=== PATIENT | female | born 1965 | race Caucasian/White ===

== ENCOUNTER 2018-05-31 06:27 | Observation (INO) ==
--- NOTE | 2018-05-31 07:28 | ED ---
HPI General Chief Complaint: Seizure Stated Complaint: medical Time Seen by Provider: 05/31/18 07:20 Source: patient Mode of arrival: EMS Limitations: no limitations History of Present Illness HPI Narrative: 52 y/o female resents by ambulance after having a witnessed tonic -clonic seizure. She was postictal with EMS. She is back to baseline now. She states in [place] she had a recent workup for atrial fibrillation and had an ablation to help control her heart rate. She states she moved down here and does not have a local doctor now. She states she has been having passout episodes but is never been diagnosed with a true seizure and takes no seizure medications. She states she is also been having intermittent chest pain over the past couple weeks. She states her heart doctor up in [place] was wanting to do a pacemaker next to help control her heart rate but she has not had a chance to follow-up given she is down here now. She denies any other concurrent complaints and does not recall episode. Related Data Allergies Allergy/AdvReac Type Severity Reaction Status Date / Time meperidine Allergy Mild Hives Verified 05/31/18 06:39 hydromorphone Allergy Unknown Anaphylaxis Verified 05/31/18 06:39 NOVCAINE Allergy Mild Burning Uncoded 05/31/18 06:39 Review of Systems ROS: all other systems reviewed are negative ON LICENSE OF [facility] Medical History Medical History A-fib (Acute) Hx of hysterectomy (Acute) Surgical History Surgical History Hx of section (Acute) Hx of prior ablation treatment (Acute) Social History Social History Substance History: No History of Abuse Second Hand Smoke Exposure: No Smoking Status: Former smoker How Often Do You Have a Drink Containing Alcohol: Monthly or less Recent Travel in [facility] within the Last 8 Weeks: No Recent Out of Country Travel within the Last 8 Weeks: No Immunization History Tetanus Immunization: >5 Years Exam Narrative Exam Narrative: GENERAL: 52 y/o female in no apparent distress SKIN: Focused skin assessment warm/dry. HEAD: Atraumatic. Normocephalic. EYES: Pupils equal and round. No scleral icterus. No injection or drainage. ENT: No nasal bleeding or discharge. Mucous membranes pink and moist. NECK: Trachea midline. No JVD. CARDIOVASCULAR: Regular rate and rhythm. RESPIRATORY: No accessory muscle use. no increased effort GASTROINTESTINAL: Abdomen soft, non-tender, nondistended. MUSCULOSKELETAL: No obvious deformities. No clubbing. No cyanosis. No edema. NEUROLOGICAL: Awake and alert. Motor grossly within normal limits. Normal speech. PSYCHIATRIC: Appropriate mood and affect; insight and judgment normal. Course Reevaluation(s) Reevaluation #1: Patient updated and agrees to plan Consultations Consultation #1: resident team agrees to admit Initial Documented Vital Signs Temperature 98.2 F 05/31/18 06:33 Pulse Rate 84 05/31/18 06:33 Respiratory Rate 18 05/31/18 06:33 Blood Pressure 126/60 05/31/18 06:33 Pulse Oximetry 99 05/31/18 06:33 Last Documented Vital Signs Temperature 98.2 F 05/31/18 06:33 Pulse Rate 87 05/31/18 08:23 Respiratory Rate 17 05/31/18 08:23 Blood Pressure 169/71 H 05/31/18 08:23 Pulse Oximetry 96 05/31/18 08:23 Medical Decision Making MDM Narrative Medical decision making narrative: Will check blood work, chest x-ray, CT brain and patient will need to be admitted to the hospital for further care Medical Screen Exam Complete: Yes Emergency Medical Condition: Yes Differential Diagnosis Differential Diagnosis: Seizure disorder, electrolyte abnormality, intracranial , cardiac Lab Data Lab results reviewed: Yes I reviewed the patient's lab results. Result diagrams: 05/31/18 07:00 05/31/18 07:00 Lab Results 05/31/18 05/31/18 05/31/18 Range/Units 07:00 07:00 07:00 WBC 6.7 (4.0-11.0) th/mm3 RBC 4.23 (4.00-5.30) mil/mm3 Hgb 13.9 (11.6-15.3) gm/dL Hct 39.8 (35.0-46.0) % MCV 94.0 (80.0-100.0) fL MCH 32.8 (27.0-34.0) pg MCHC 34.9 (32.0-36.0) % RDW 13.3 (11.6-17.2) % Plt Count 270 (150-450) th/mm3 MPV 9.1 (7.0-11.0) fL Neut % (Auto) 52.6 (16.0-70.0) % Lymph % (Auto) 27.7 (9.0-44.0) % [place] % (Auto) 16.8 H (0.0-8.0) % Eos % (Auto) 2.2 (0.0-4.0) % Baso % (Auto) 0.7 (0.0-2.0) % Neut # (Auto) 3.5 (1.8-7.7) th/mm3 Lymph # (Auto) 1.8 (1.0-4.8) th/mm3 [place] # (Auto) 1.1 H (0.0-0.9) th/mm3 Eos # (Auto) 0.1 (0.0-0.4) th/mm3 Baso # (Auto) 0.0 (0.0-0.2) th/mm3 WBC Differential . Differential Comment Auto diff final Sodium 142 (136-145) meq/L Potassium 3.6 (3.5-5.1) meq/L Chloride 106 (98-107) meq/L Carbon Dioxide 26.8 (21.0-32.0) meq/L Anion Gap 9 (5-15) meq/L BUN 13 (7-18) mg/dL Creatinine 0.76 (0.50-1.00) mg/dL Estimated GFR 81 L (>89) mL/min Random Glucose 115 H (74-106) mg/dL Calcium 8.5 (8.5-10.1) mg/dL Magnesium 1.9 (1.5-2.5) mg/dL Total Bilirubin 0.8 (0.2-1.0) mg/dL AST 28 (15-37) U/L ALT 45 (10-53) U/L Alkaline Phosphatase 86 (45-117) U/L Total Creatine Kinase 123 Cancelled (26-192) U/L CK-MB (CK-2) Less than 1.0 (0.5-3.6) ng/mL Troponin I Less than 0.02 L Cancelled (0.02-0.05) ng/mL Total Protein 7.4 (6.4-8.2) g/dL Albumin 3.2 L (3.4-5.0) g/dL Imaging Data Attestation: I personally reviewed and interpreted this imaging study as follows : Radiologist's impression: Head CT 05/31/18 07:20 CONCLUSION: 1. No acute intracranial abnormality. . Chest X-Ray 05/31/18 08:36 CONCLUSION: No acute intrathoracic disease. Stable examination. Discharge Plan Discharge Disposition Patient Disposition: 30 Still Patient Discharge Details Diagnosis: Seizure Physicians Team ED Provider: Carolyn Bishop Primary Care Provider: Primary Care Mary Couch Attending Provider: Luis Lambert Discharge Interventions Interventions: Vital Signs Last Done: 05/31/18 08:23 Status ED Status: Admitted Observation Patient
--- NOTE | 2018-05-31 07:59 | CT ---
EXAM DATE: 05/31/2018 7:37 AM EDT AGE/SEX: 52 years / Female INDICATIONS: Cephalgia, Altered mental status. CLINICAL DATA: This is the patient's initial encounter. Patient reports that signs and symptoms have been present for 1 day and indicates a pain score of 6/10. MEDICAL/SURGICAL HISTORY: . Afib. Hysterectomy. section. RADIATION DOSE: 40.76 CTDI (mGy) COMPARISON: . TECHNIQUE: CT of the head without contrast. Using automated exposure control and adjustment of the mA and/or kV according to patient size, radiation dose was kept as low as reasonably achievable to ob tain optimal diagnostic quality images. DICOM format image data is available electronically for revi ew and comparison. FINDINGS: Cerebrum: The ventricles are normal for age. No evidence of midline shift, mass lesion, hemorrhage o r acute infarction. No extraaxial fluid collections are seen. Posterior Fossa: The cerebellum and brainstem are intact. The 4th ventricle is midline. The cerebe llopontine angle is unremarkable. Extracranial: The visualized portion of the orbits is intact. Skull: The calvaria is intact. No evidence of skull fracture. CONCLUSION: 1. No acute intracranial abnormality. . Electronically signed by: Reza Waller MD 05/31/2018 7:58 AM EDT
[2018-05-31 08:12] LABS: Baso % (Auto) 0.7 % (0.0-2.0); Eos # (Auto) 0.1 th/mm3 (0.0-0.4); Eos % (Auto) 2.2 % (0.0-4.0); Hematocrit 39.8 % (35.0-46.0); Hemoglobin 13.9 gm/dL (11.6-15.3); Lymph # (Auto) 1.8 th/mm3 (1.0-4.8); Lymph % (Auto) 27.7 % (9.0-44.0); Mean Corpuscular HGB Conc 34.9 % (32.0-36.0); Mean Corpuscular Hemoglobin 32.8 pg (27.0-34.0); Mean Platelet Volume 9.1 fL (7.0-11.0); Mono # (Auto) 1.1 th/mm3 (0.0-0.9); Mono % (Auto) 16.8 % (0.0-8.0); Neut # (Auto) 3.5 th/mm3 (1.8-7.7); Neut % (Auto) 52.6 % (16.0-70.0); Platelet Count 270 th/mm3 (150-450); Red Blood Count 4.23 mil/mm3 (4.00-5.30); Red Cell Distribution Width 13.3 % (11.6-17.2); White Blood Count 6.7 th/mm3 (4.0-11.0)
[2018-05-31] MEDS: Sod Chloride 0.9% Inj 1,000 ML IV.CONT SCH ×2 (08:22→18:11)
[2018-05-31 08:34] LABS: Albumin 3.2 g/dL (3.4-5.0); Anion Gap 9 meq/L (5-15); Aspartate Aminotransferase 28 U/L (15-37); Blood Urea Nitrogen 13 mg/dL (7-18); Calcium 8.5 mg/dL (8.5-10.1); Carbon Dioxide 26.8 meq/L (21.0-32.0); Chloride 106 meq/L (98-107); Glomerular Filtration Rate 81 mL/min (>89); Glucose,Random 115 mg/dL (74-106); Magnesium 1.9 mg/dL (1.5-2.5); Potassium 3.6 meq/L (3.5-5.1); Sodium 142 meq/L (136-145)
[2018-05-31 08:35] LABS: Alanine Aminotransferase 45 U/L (10-53)
[2018-05-31 08:39] LABS: Alkaline Phosphatase 86 U/L (45-117); Creatine Kinase 123 U/L (26-192); Total Protein 7.4 g/dL (6.4-8.2)
--- NOTE | 2018-05-31 09:28 | XR ---
EXAM DATE: 05/31/2018 8:36 AM EDT AGE/SEX: 52 years / Female INDICATIONS: Chest pain. CLINICAL DATA: This is the patient's initial encounter. Patient reports that signs and symptoms have been present for 1 day and indicates a pain score of 5/10. MEDICAL/SURGICAL HISTORY: Carcinoma, ovarian. A-fib Hysterectomy. section. COMPARISON: [facility] [place], CHEST SINGLE AP, 03/01/2011. . FINDINGS: A single AP view of the chest demonstrates the lungs to be symmetrically aerated without evidence of mass, infiltrate or effusion. The cardiomediastinal contours are unremarkable. Osseous structures a re intact. CONCLUSION: No acute intrathoracic disease. Stable examination. Electronically signed by: Thiago Olivares MD 05/31/2018 9:26 AM EDT
--- NOTE | 2018-05-31 09:51 | P.HPFP ---
History of Present Illness Primary Care Physician: No Primary Care Physician History of Present Illness: This is a 52-year-old female with a history of "blackouts" and atrial fibrillation status post cardiac ablation admitted to observation after experiencing chest pain and a tonic-clonic seizure. Patient reports that this morning was atypical and regular morning and while making lunch the patient's partner described the patient grabbed her chest granted and her eyes rolled back to begin to shake. Her partner then eased her down to the ground avoiding injury. According to the partner the patient continued to shake and rapidly open and close her eyes for approximately 3 minutes. After 3 minutes of convulsions the partner reports that the patient had approximately 1 minute a little to no breathing with a large gasp before regaining consciousness. During this time the patient reports having no memory of the events immediately before or after reports that she was confused and disoriented until she arrived at the hospital. Partner also reports that the patient urinated on herself during this event. During this time the partner also reports that the patient appeared to be dry heaving but did not vomit. Patient also describes a 4-day history of chest pain. She describes the chest pain as constant at a baseline /10 with exacerbations increasing her pain. She characterizes her chest pain as squeezing that begins in the left side of her chest just underneath the left breast and radiates to the right shoulder, then around her back to her left shoulder that leaves her shoulders feeling like "restless leg". Patient reports it is unrelated to position activity or food but is worsened by deep breathing. Pain self recedes after an inconsistent amount of time. Patient also reports experiencing shortness of breath over the last 2 days. There are no other alleviating or exacerbating factors. There are no other associated symptoms. OBHx: , patient had one gestation with twins 1 of which was diagnosed as a ectopic and removed via laparoscopy. PMHx: - "Blackouts": Patient reports a long history of "black out" spells getting since the 3rd grade. She reports that during these blackout spells she would experience a loss of consciousness and originally could not feel these abrupt loss of tone and consciousness in advance. As an adult she said that they were associated with white spots and feeling woozy as if though she were on a boat. Patient was originally worked up as a child but did not receive workup as an adult. Patient reports that until 5 years ago she was experiencing these blackout events 1 to every 2 months. Since 5 years ago she is experiencing about once a year with the last episode being once a year. She also reported these blackout episodes were accompanied by shaking and in the past have caused trauma and lacerations while falling. As an adult she reports that before she has an event she begins to experience visual changes in her vision becomes blurry. Patient also reports that they are at times when experiences urinary incontinence during these episodes as well as there are time when she experiences shaking during these episodes. These blackout sessions are unrelated to activity, time of day, or position. Due to lack of insurance patient has not received consistent medical care since her daughter's 30 years ago until being diagnosed with atrial fibrillation in 2012 where she was lost [place] followup until 2017. - Ovarian cancer of unknown etiology diagnosed in 2001, status post total hysterectomy with bilateral salpingo-oophorectomy. Patient denies any treatment with chemotherapy or radiation and was lost to follow-up. - Atrial fibrillation with RVR diagnosed in 2012, status post cardiac ablation. Lost to follow up after ablation due to mother's and lack of insurance. Meds: None Surgical Hx: Total hysterectomy with bilateral salpingooopherectomy, laparoscopy for ectopic, , cardiac ablation in 2012 FHx: Father at age 23 from leukemia, brother at age 28 from the same leukemia in his father, mother at the age of 67 due to interstitial lung disease, both mother and maternal grandmother suffered from heart disease as well as TIAs. Paternal grandmother from breast cancer. Social: Patient currently in a homosexual relationship for "many years", she has 5 children and has been previously . 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 She drinks socially/2 drinks per week. Patient is a prior smoker and smoked 1 pack a week for 37 years and quit over one year ago. Patient reports smoking marijuana since she was 13 years old and does not use any other illicit or recreational drugs. Allergies: Dilaudid causes anaphylaxis Code: DNR DNI - Diagnosis (1) Seizure (2) Chest pain (3) Shoulder pain, right (4) Nutrition, metabolism, and development symptoms Review of Systems Constitutional: Denies chills, Denies fever(s), Denies headache(s), Denies dizziness, Eyes: Endorses foggy and blurry vision before "blackout" spells but has had no acute changes in vision outside of her events Cardiovascular: Chest pain as per HPI Respiratory: Endorses a 2-day history of shortness of breath without wheezing Gastrointestinal: Denies abdominal pain, Denies constipation, Denies loose stools, Denies nausea, Denies vomiting Genitourinary: Denies difficulty urinating, Denies painful urination, Denies urinary frequency, Denies blood in urine MSK: Patient endorses right shoulder pain as well as bilateral calf pain PMFSH - History History Provided By: [employer] / EMT - Medical History Medical History: Medical History (Last Reviewed 05/31/18 @ 07:27 by Carolyn Bishop MD) A-fib Hx of hysterectomy - Surgical History Surgical History: Surgical History (Last Reviewed 05/31/18 @ 07:27 by Carolyn Bishop MD) Hx of section Hx of prior ablation treatment - Tobacco History Second Hand Smoke Exposure: No Smoking Status: Former smoker - Alcohol History How Often Do You Have a Drink Containing Alcohol: Monthly or less - Substance Use History Substance History: No History of Abuse - Travel History Recent Travel in the [place] Within the Last 8 Weeks: No Recent Travel Out of the Country Within the Last 8 Weeks: No - Immunization History Tetanus Immunization: >5 Years Medications and Allergies Active Medications: Active Medications Sodium Chloride (Ns Inj) 1,000 mls @ 125 mls/hr IV.CONT .Q8H YESSICA Last Admin: 05/31/18 08:22 Dose: 125 mls/hr Lorazepam (Ativan Inj) 1 mg IV.PUSH Q15M PRN PRN Reason: SEIZURES Sodium Chloride (Ns Flush) 2 ml IV.FLUSH PRN PRN PRN Reason: FLUSH AFTER USING IV ACCESS Allergies Allergy/AdvReac Type Severity Reaction Status Date / Time meperidine Allergy Mild Hives Verified 05/31/18 06:39 hydromorphone Allergy Unknown Anaphylaxis Verified 05/31/18 06:39 NOVCAINE Allergy Mild Burning Uncoded 05/31/18 06:39 Home Medications Medication Instructions Recorded Confirmed Type No Known Home Medications 05/31/18 05/31/18 History Exam Vital signs: Vital Signs 05/31/18 06:33 10/22/18 08:23 Temperature 98.2 F Pulse Rate 84 87 Respiratory Rate 18 17 Blood Pressure 126/60 169/71 H Pulse Oximetry 99 96 Intake & Output 05/30/18 05/31/18 05/31/18 18:59 06:59 18:59 Weight 117.934 kg Narrative: GENERAL: Well-nourished, Obese, well-developed patient. No acute distress. SKIN: Warm and dry. No rash. EYES: No scleral icterus. No injection or drainage. PERRLA. EOMI. HENT: Normocephalic. Atraumatic. MMM. OP Benign. NECK: No JVD CARDIOVASCULAR: Regular rate and rhythm without obvious murmurs, a mild gallops , but no rubs. Mild diffuse tenderness to palpation of the chest wall. RESPIRATORY: Breath sounds equal bilaterally. No accessory muscle use. CTAB. GASTROINTESTINAL: Abdomen soft, obese, non-tender, nondistended. BS WNL. MUSCULOSKELETAL: No cyanosis or edema. Patient had significant bilateral calf pain with dorsiflexion of both calves bilaterally. Tenderness to palpation upon squeezing the calf bilaterally. Patient had tenderness on posterior shoulder as well as anterior shoulder. Patient had a symmetric strength with 5 out of 5 on the left and 4 out of 5 on the right during tinsmith helper strength. Lower extremity strength was 5 out of 5 bilaterally. Cranial nerves II through XII are grossly intact. No obvious central neuro or motor deficits noted. BACK: Nontender without obvious deformity. No CVA tenderness. NEURO/PSYCH: Afocal. Awake, alert, and oriented x3. Results - Labs Result diagrams: 05/31/18 07:00 05/31/18 07:00 Abnormal lab results 05/31/18 05/31/18 Range/Units 07:00 07:00 [place] % (Auto) 16.8 H (0.0-8.0) % [place] # (Auto) 1.1 H (0.0-0.9) th/mm3 Estimated GFR 81 L (>89) mL/min Random Glucose 115 H (74-106) mg/dL Troponin I Less than 0.02 L (0.02-0.05) ng/mL Albumin 3.2 L (3.4-5.0) g/dL Short CBC 05/31/18 Range/Units 07:00 WBC 6.7 (4.0-11.0) th/mm3 Hgb 13.9 (11.6-15.3) gm/dL Hct 39.8 (35.0-46.0) % Plt Count 270 (150-450) th/mm3 BMP 05/31/18 07:00 Sodium 142 Potassium 3.6 Chloride 106 Carbon Dioxide 26.8 BUN 13 Creatinine 0.76 Calcium 8.5 Cardiac Enzymes 05/31/18 05/31/18 Range/Units 07:00 07:00 Total Creatine Kinase 123 Cancelled (26-192) U/L CK-MB (CK-2) Less than 1.0 (0.5-3.6) ng/mL Troponin I Less than 0.02 L Cancelled (0.02-0.05) ng/mL Liver Function 05/31/18 Range/Units 07:00 Total Bilirubin 0.8 (0.2-1.0) mg/dL AST 28 (15-37) U/L ALT 45 (10-53) U/L Alkaline Phosphatase 86 (45-117) U/L Albumin 3.2 L (3.4-5.0) g/dL - Imaging Impressions Head CT 05/31/18 07:20 CONCLUSION: 1. No acute intracranial abnormality. . Chest X-Ray 05/31/18 08:36 CONCLUSION: No acute intrathoracic disease. Stable examination. Caprini VTE Risk Assessment Caprini VTE Risk Assessment: No/Low Risk (score <= 1) Caprini Risk Assessment Model: Point Value = 1 Point Value = 2 Point Value = 3 Point Value = 5 Age 41-60 Minor surgery BMI > 25 kg/m2 Swollen legs Varicose veins or History of unexplained or recurrent spontaneous Oral contraceptives or hormone replacement Sepsis (< 1 month) Serious lung disease, including pneumonia (< 1 month) Abnormal pulmonary function Acute myocardial infarction Congestive heart failure (< 1 month) History of inflammatory bowel disease Medical patient at bed rest Age 61-74 Arthroscopic surgery Major open surgery (> 45 min) Laparoscopic surgery (> 45 min) Malignancy Confined to bed (> 72 hours) Immobilizing plaster cast Central venous access Age >= 75 History of VTE Family history of VTE Factor V Leiden Prothrombin [id number] Lupus anticoagulant Anticardiolipin antibodies Elevated serum homocysteine Heparin-induced thrombocytopenia Other congenital or acquired thrombophilia Stroke (< 1 month) Elective arthroplasty Hip, pelvis, or leg fracture Acute spinal cord injury (< 1 month) Prophylaxis Regimen: Total Risk Factor Score Risk Level Prophylaxis Regimen 0-1 Low Early ambulation 2 Moderate Order ONE of the following: *Sequential Compression Device (SCD) *Heparin 5000 units SQ BID 3-4 Higher Order ONE of the following medications: *Heparin 5000 units SQ TID *Enoxaparin/Lovenox 40 mg SQ daily (WT < 150 kg, CrCl > 30 mL/min) *Enoxaparin/Lovenox 30 mg SQ daily (WT < 150 kg, CrCl > 10-29 mL/min) *Enoxaparin/Lovenox 30 mg SQ BID (WT < 150 kg, CrCl > 30 mL/min) AND/OR *Sequential Compression Device (SCD) 5 or more Highest Order ONE of the following medications: *Heparin 5000 units SQ TID (Preferred with Epidurals) *Enoxaparin/Lovenox 40 mg SQ daily (WT < 150 kg, CrCl > 30 mL/min) *Enoxaparin/Lovenox 30 mg SQ daily (WT < 150 kg, CrCl > 10-29 mL/min) *Enoxaparin/Lovenox 30 mg SQ BID (WT < 150 kg, CrCl > 30 mL/min) AND *Sequential Compression Device (SCD) Assessment and Plan - Assessment (1) Seizure Code(s): R56.9 - Unspecified convulsions Status: Acute Plan: This is a 52-year-old female with a history of "blackouts", atrial fibrillation , and ovarian cancer who was admitted to observation after experiencing a witnessed tonic-clonic seizure. Causes for tonic clonic seizures include epilepsy vs infection vs intracranial mass vs metabolic disturbance vs alcohol withdrawal -Head Ct: No acute intracranial abnormality -EKG: Normal sinus rhythm with 1 PVC -CBC: Within normal limits -CMP: No acute metabolic disturbances -U-tox: Serum alcohol less than 3 -MRI: Pending -EEG: Pending -UA: Pending -Seizure precautions - Ativan for acute seizure - Neurology consulted appreciate recommendations - Case management consulted (2) Chest pain Code(s): R07.9 - Chest pain, unspecified Status: Acute Plan: Chest pain with accompanied shortness of breath: ACS vs PE vs musculoskeletal pain secondary to convulsions - EKG: Normal sinus rhythm with 1 PVC - Initial Troponin: Less than 0.02 - CXR: No intrathoracic disease - Satting 98% on room air - D-Dimer pending, will consider lower extremity doppler or V/Q scan - Trend troponins - Monitor on telemetry (3) Shoulder pain, right Code(s): M25.511 - Pain in right shoulder Status: Acute Plan: Patient tender on palpation of the right shoulder. Limited range of motion but appeared to be symmetrical. Both glenohumeral joints captured in CXR with no obvious dislocation. Patient also has generalized muscle pain most likely secondary to tonic clonic seizure. - Toradol for pain (4) Nutrition, metabolism, and development symptoms Code(s): R63.8 - Other symptoms and signs concerning food and fluid intake Status: Acute Plan: Fluids: No IV fluids indicated at this time Electrolytes: Replete as needed Nutrition: Cardiac diet DVT prophylaxis: Enoxaparin 40 Q24hrs
[2018-05-31] MEDS ORDERED: Naloxone Inj 0.4 MG/ML Vial IV.PUSH PRN (10:43)
[2018-05-31] MEDS ORDERED: Ketorolac Inj 30 MG/ML (IVP) Vial IV.PUSH PRN ×2 (10:43)
[2018-05-31] MEDS ORDERED: Acetaminophen 325 MG Tablet PO PRN (10:43)
--- NOTE | 2018-05-31 12:06 | MR ---
EXAM DATE: 05/31/2018 11:20 AM EDT AGE/SEX: 52 years / Female INDICATIONS: Seizures. Right sided weakness. CLINICAL DATA: This is the patient's initial encounter. Patient reports that signs and symptoms have been present for 2 days and indicates a pain score of 0/10. MEDICAL/SURGICAL HISTORY: Seizures. Hysterectomy. section. Cardiac ablations. COMPARISON: [facility] – [place], CT HEAD W/O CONTRAST, 05/31/2018. . TECHNIQUE: Multiplanar, multisequence examination of the brain was performed without contrast. FINDINGS: Cerebrum: The ventricles are normal for age. No evidence of midline shift, mass lesion, hemorrhage or acute infarction. No extraaxial fluid collections are seen. The pituitary gland and suprasellar cistern are normal in configuration. White Matter: No significant signal abnormalities are seen in the white matter. Posterior Fossa: The cerebellum and brainstem are intact. The 4th ventricle is midline. The cerebel lopontine angle is unremarkable. The cerebellar tonsils are normal in position. Diffusion Imaging: No focal areas of restricted diffusion are seen. No evidence of acute infarction . Extracranial: The visualized portions of the orbits and paranasal sinuses are unremarkable. There is evidence of chronic right-sided mastoiditis. CONCLUSION: 1. Unremarkable MRI of the brain for patient's age. 2. Chronic right-sided mastoiditis. Electronically signed by: Thiago Olivares MD 05/31/2018 12:05 PM EDT
[2018-05-31] MEDS: Enoxaparin Inj 40 MG/0.4 ML Syringe SQ SCH (12:32)
[2018-05-31 14:06] LABS: Activated Partial Thrombo Time 26.6 sec (24.3-30.1)
[2018-05-31 14:08] LABS: D-Dimer 0.59 mg/L FEU (0.00-0.50)
--- NOTE | 2018-05-31 16:30 | ECG ---
Date Performed: 05/31/2018 Time Performed: 08:29:56 PTAGE: 52 years EKG: Sinus rhythm WITH OCCASIONAL VENTRICULAR PREMATURE COMPLEXES BORDERLINE ECG PREVIOUS TRACING : 03/01/2011 19.41 Compared to previous tracing, the bigeminy is resolved and the patient has only rare PVC's. When allowing for the frequent PVC's on the prior tracing there has been no gross serial change. DOCTOR: Sabra Damico Interpretating Date/Time 05/31/2018 16:28:55
--- NOTE | 2018-05-31 18:07 | MB ---
cc: Pablito Cabral MD, PhD DATE: 05/31/2018 REASON FOR CONSULTATION: New-onset seizure. HISTORY OF PRESENT ILLNESS: Ms. Sandoval is a 52-year-old female with history of previous syncopal episode due to cardiac arrhythmia, status post ablation. Yesterday, had an episode where she lost consciousness, had generalized tonic-clonic activity for about 2-3 minutes, after which was postictal, confused, disoriented; does not recall being brought to the ER, had no palpitations. No prior seizure history. MEDICATIONS: Currently are: 1. Toradol p.r.n. 2. Lovenox 40 mg subcutaneous daily. 4. Clonidine. 4. Narcan p.r.n. NEUROLOGICAL EXAMINATION: VITAL SIGNS: Blood pressure 143/88, pulse 72, respirations 16, temperature, 97 degrees. NEUROLOGIC: Higher cortical function is normal. Cranial nerves intact. Motor exam is 5/5 strength in all groups. Reflexes are symmetric. IMAGING STUDIES: 1. MRI brain is within normal limits. Right-sided mastoiditis. 2. CT brain, normal limits. DIAGNOSTIC DATA: EEG pending. LABORATORY DATA: The white count 6700, hemoglobin 13.9, hematocrit 39%, platelet count 270,000. PT 10, INR 1, aPTT 26.6. Sodium is 142, potassium 3.6, chloride 106, CO2 26.8, BUN is 13, creatinine 0.76, GFR is 81, glucose 115, AST 28, ALT 45. Tox screen: Alcohol less than ____. IMPRESSION: Generalized tonic-clonic seizure which appears to be new onset. I questioned her about the previous episodes. Those were all very different; appeared to be mainly syncope from cardiac source. Therefore, I believe this is a new onset generalized tonic-clonic seizure. RECOMMENDATION: We will obtain an EEG. Would not recommend antiseizure medication unless the EEG showed epileptiform discharges. If she were to have another episode, then would recommend anticonvulsant therapy. The patient should not drive for at least 6 months of being free of seizure. Pablito Cabral MD, PhD MIGUEL/ambrocio/daniel , 03:59 PM , 04:04 PM
[2018-05-31 19:35] LABS: Bacteria,Urine Many /hpf; Bilirubin,Urine Negative (Negative); Clarity,Urine Hazy (Clear); Color,Urine Yellow (Yellw/Straw); Glucose,Urine (UA) Negative (Negative); Leukocyte Esterase,Urine Negative (Negative); Nitrite,Urine Positive (Negative); Squamous Epithelial Cell,Urine 5 /hpf (0-5)
[2018-06-01 01:22] LABS: Amphetamine Screen,Urine Neg (Neg); Barbiturate Screen,Urine Neg (Neg); Cannabinoid Screen,Urine Pos (Neg); Cocaine Screen,Urine Neg (Neg)
[2018-06-01 01:31] LABS: Opiate Screen,Urine Neg (Neg)
[2018-06-01] MEDS: Sod Chloride 0.9% Inj 1,000 ML IV.CONT SCH ×2 (04:24→09:02)
[2018-06-01 07:34] LABS: Baso # (Auto) 0.1 th/mm3 (0.0-0.2); Baso % (Auto) 1.3 % (0.0-2.0); Eos # (Auto) 0.1 th/mm3 (0.0-0.4); Eos % (Auto) 2.5 % (0.0-4.0); Hematocrit 39.4 % (35.0-46.0); Hemoglobin 13.4 gm/dL (11.6-15.3); Lymph # (Auto) 1.8 th/mm3 (1.0-4.8); Lymph % (Auto) 30.7 % (9.0-44.0); Mean Corpuscular HGB Conc 34.1 % (32.0-36.0); Mean Corpuscular Hemoglobin 32.7 pg (27.0-34.0); Mean Corpuscular Volume 96.1 fL (80.0-100.0); Mean Platelet Volume 8.9 fL (7.0-11.0); Mono # (Auto) 0.7 th/mm3 (0.0-0.9); Mono % (Auto) 12.5 % (0.0-8.0); Neut # (Auto) 3.1 th/mm3 (1.8-7.7); Platelet Count 265 th/mm3 (150-450); Red Cell Distribution Width 13.5 % (11.6-17.2); White Blood Count 5.8 th/mm3 (4.0-11.0)
[2018-06-01 07:55] LABS: Anion Gap 6 meq/L (5-15); Blood Urea Nitrogen 10 mg/dL (7-18); Carbon Dioxide 27.6 meq/L (21.0-32.0); Chloride 109 meq/L (98-107); Glomerular Filtration Rate Greater Than 89 mL/min (>89); Glucose,Random 94 mg/dL (74-106); Potassium 3.7 meq/L (3.5-5.1); Sodium 143 meq/L (136-145)
[2018-06-01] MEDS: Enoxaparin Inj 40 MG/0.4 ML Syringe SQ SCH (12:11)
[2018-06-01] MEDS: Ibuprofen 400 MG Tablet PO SCH ×2 (13:29→18:15)
--- NOTE | 2018-06-01 13:53 | P.PNFP ---
Subjective Interval history: 52 yo female admitted for seizure being seen for f/u today. No weakness, shakiness, or confusion today. Still having some chest pain radiating to the back, very mild. No SOB. No abdominal pain. <Erasmo Mares - 06/01/18 13:52> Results - Labs Result diagrams: 06/01/18 06:25 06/01/18 06:25 <Luis Lambert - 06/01/18 17:20> Abnormal lab results 05/31/18 05/31/18 06/01/18 Range/Units 18:05 18:05 06:25 [place] % (Auto) 12.5 H (0.0-8.0) % Chloride (98-107) meq/L Calcium (8.5-10.1) mg/dL Urine Clarity Hazy H (Clear) Urine Occult Blood Small H (Negative) Urine Nitrate Positive H (Negative) Urine Urobilinogen 2.0 H (Less than 2) mg/dL Urine Bacteria Many H (None) /hpf U Cannabinoids Screen Pos H (Neg) 06/01/18 Range/Units 06:25 [place] % (Auto) (0.0-8.0) % Chloride 109 H (98-107) meq/L Calcium 8.0 L (8.5-10.1) mg/dL Urine Clarity (Clear) Urine Occult Blood (Negative) Urine Nitrate (Negative) Urine Urobilinogen (Less than 2) mg/dL Urine Bacteria (None) /hpf U Cannabinoids Screen (Neg) Short CBC 06/01/18 Range/Units 06:25 WBC 5.8 (4.0-11.0) th/mm3 Hgb 13.4 (11.6-15.3) gm/dL Hct 39.4 (35.0-46.0) % Plt Count 265 (150-450) th/mm3 BMP 06/01/18 06:25 Sodium 143 Potassium 3.7 Chloride 109 H Carbon Dioxide 27.6 BUN 10 Creatinine 0.67 Calcium 8.0 L Urine 05/31/18 Range/Units 18:05 Urine Color Yellow (Yellw/Straw) Urine Clarity Hazy H (Clear) Urine pH 6.0 (5.0-8.5) Ur Specific [place] 1.020 (1.002-1.035) Urine Protein Negative (Neg-Trace) mg/dL Urine Glucose (UA) Negative (Negative) mg/dL <Luis Lambert - 06/01/18 17:20> Abnormal lab results 05/31/18 05/31/18 05/31/18 Range/Units 13:24 13:24 18:05 [place] % (Auto) (0.0-8.0) % D-Dimer Quant (PE/DVT) 0.59 H (0.00-0.50) mg/L FEU Chloride (98-107) meq/L Calcium (8.5-10.1) mg/dL Troponin I Less than 0.02 L (0.02-0.05) ng/mL Urine Clarity Hazy H (Clear) Urine Occult Blood Small H (Negative) Urine Nitrate Positive H (Negative) Urine Urobilinogen 2.0 H (Less than 2) mg/dL Urine Bacteria Many H (None) /hpf U Cannabinoids Screen (Neg) 05/31/18 06/01/18 06/01/18 Range/Units 18:05 06:25 06:25 [place] % (Auto) 12.5 H (0.0-8.0) % D-Dimer Quant (PE/DVT) (0.00-0.50) mg/L FEU Chloride 109 H (98-107) meq/L Calcium 8.0 L (8.5-10.1) mg/dL Troponin I (0.02-0.05) ng/mL Urine Clarity (Clear) Urine Occult Blood (Negative) Urine Nitrate (Negative) Urine Urobilinogen (Less than 2) mg/dL Urine Bacteria (None) /hpf U Cannabinoids Screen Pos H (Neg) Short CBC 06/01/18 Range/Units 06:25 WBC 5.8 (4.0-11.0) th/mm3 Hgb 13.4 (11.6-15.3) gm/dL Hct 39.4 (35.0-46.0) % Plt Count 265 (150-450) th/mm3 BMP 06/01/18 06:25 Sodium 143 Potassium 3.7 Chloride 109 H Carbon Dioxide 27.6 BUN 10 Creatinine 0.67 Calcium 8.0 L Cardiac Enzymes 05/31/18 Range/Units 13:24 Troponin I Less than 0.02 L (0.02-0.05) ng/mL Urine 05/31/18 Range/Units 18:05 Urine Color Yellow (Yellw/Straw) Urine Clarity Hazy H (Clear) Urine pH 6.0 (5.0-8.5) Ur Specific [place] 1.020 (1.002-1.035) Urine Protein Negative (Neg-Trace) mg/dL Urine Glucose (UA) Negative (Negative) mg/dL <Erasmo Mares S - 06/01/18 13:52> Physical Exam Vital signs: Vital Signs 05/31/18 20:00 05/31/18 23:18 05/31/18 23:54 Temperature 97.6 F 97.6 F Pulse Rate 69 60 69 Respiratory Rate 16 16 Blood Pressure 116/68 110/63 Pulse Oximetry 97 96 06/01/18 03:26 06/01/18 05:16 06/01/18 07:40 Temperature 97.7 F 98.0 F Pulse Rate 66 71 69 Respiratory Rate 19 16 Blood Pressure 128/78 131/64 Pulse Oximetry 97 95 06/01/18 08:00 06/01/18 12:00 Temperature 98.6 F Pulse Rate 71 77 Respiratory Rate 16 Blood Pressure 127/66 Pulse Oximetry 93 L Intake & Output 05/31/18 06/01/18 06/01/18 18:59 06:59 18:59 Intake Total 1000 / 1000 1000 / 1000 1000 / 1000 Balance 1000 / 1000 1000 / 1000 1000 / 1000 Intake: IV 1000 / 1000 1000 / 1000 1000 / 1000 NS Inj 1,000 ML @ 125 mls/hr IV 1000 / 1000 1000 / 1000 1000 / 1000 .CONT .Q8H [facility] Rx#:[id number] Other: # Voids 3 Date of Last Bowel Movement 05/31/18 05/31/18 # Bowel Movements 1 <Luis Lambert - 06/01/18 17:20> Vital Signs 05/31/18 15:53 05/31/18 20:00 05/31/18 23:18 Temperature 97.5 F L 97.6 F 97.6 F Pulse Rate 72 69 60 Respiratory Rate 16 16 16 Blood Pressure 143/88 H 116/68 110/63 Pulse Oximetry 95 97 96 05/31/18 23:54 06/01/18 03:26 06/01/18 05:16 Temperature 97.7 F Pulse Rate 69 66 71 Respiratory Rate 19 Blood Pressure 128/78 Pulse Oximetry 97 06/01/18 07:40 06/01/18 08:00 06/01/18 12:00 Temperature 98.0 F 98.6 F Pulse Rate 69 71 77 Respiratory Rate 16 16 Blood Pressure 131/64 127/66 Pulse Oximetry 95 93 L Intake & Output 05/31/18 06/01/18 06/01/18 18:59 06:59 18:59 Intake Total 1000 / 1000 1000 / 1000 1000 / 1000 Balance 1000 / 1000 1000 / 1000 1000 / 1000 Intake: IV 1000 / 1000 1000 / 1000 1000 / 1000 NS Inj 1,000 ML @ 125 mls/hr IV 1000 / 1000 1000 / 1000 1000 / 1000 .CONT .Q8H [facility] Rx#:[id number] Other: # Voids 3 Date of Last Bowel Movement 05/31/18 05/31/18 # Bowel Movements 1 <Erasmo Mares S - 06/01/18 13:52> - Constitutional no acute distress, obese <Erasmo Mares S - 06/01/18 13:52> - Routine HEENT Exam Head: Present: normocephalic, atraumatic <Erasmo Mares S - 06/01/18 13:52> Eye: Present: PERRL <Jona Maresy S - 06/01/18 13:52> ENT: Present: mucous membranes moist <Jona Maresy S - 06/01/18 13:52> - Routine Respiratory Exam Present: CTA bilaterally. Absent: accessory muscle use, wheezes, crackles < Jona Maresy S - 06/01/18 13:52> - Routine Cardiovascular Exam Present: RRR, S1, S2. Absent: murmur <Jona Maresy S - 06/01/18 13:52> Comments: Telemetry review showed an isolated run of PVCs <Mares,Erasmo S - 06/01/18 13:52> - Routine Extremities Exam Absent: cyanosis, edema <Mares,Erasmo S - 06/01/18 13:52> Assessment and Plan - Assessment (1) Seizure Code(s): R56.9 - Unspecified convulsions Status: Acute (2) Chest pain Code(s): R07.9 - Chest pain, unspecified Status: Acute (3) UTI (urinary tract infection) Code(s): N39.0 - Urinary tract infection, site not specified Status: Acute (4) Shoulder pain, right Code(s): M25.511 - Pain in right shoulder Status: Acute (5) Nutrition, metabolism, and development symptoms Code(s): R63.8 - Other symptoms and signs concerning food and fluid intake Status: Acute <Luis Lambert - 06/01/18 17:20> (1) Seizure Code(s): R56.9 - Unspecified convulsions Status: Acute Plan: DDx including primary seizure/neurologic disorder, arrhythmia Head Ct: No acute intracranial abnormality EKG: Normal sinus rhythm with 1 PVC CBC: Within normal limits CMP: No acute metabolic disturbances U-tox: Serum alcohol less than 3 MRI: Pending EEG: Pending UA: Pending Ativan PRN for acute seizure Continue telemetry - if further arrhythmia noted consider echocardiogram +/- cardiology consult Neurology consulted, appreciate recommendations * Await EEG * No driving until 6 months seizure free (2) Chest pain Code(s): R07.9 - Chest pain, unspecified Status: Acute Plan: Likely costochondral by exam and lab evaluation Troponin negative x2 CXR: No intrathoracic disease Monitor on telemetry as above for runs of PVCs NSAID PRN (3) UTI (urinary tract infection) Code(s): N39.0 - Urinary tract infection, site not specified Status: Acute Plan: Urine growing gram negative rods Continue Rocephin to complete 3 days (4) Shoulder pain, right Code(s): M25.511 - Pain in right shoulder Status: Acute Plan: Likely musculoskeletal Toradol PRN for pain (5) Nutrition, metabolism, and development symptoms Code(s): R63.8 - Other symptoms and signs concerning food and fluid intake Status: Acute Plan: Fluids: No IV fluids indicated at this time Electrolytes: Replete as needed Nutrition: Cardiac diet DVT prophylaxis: Enoxaparin 40 Q24hrs <Erasmo Mares - 06/01/18 13:36> - Assessment and Plan Discharge Planning: Anticipate D/C tomorrow 06/02 if neurologic work-up negative and cardiac telemetry without abnormality <Erasmo Mares - 06/01/18 13:52> - Attending Attestation The exam, history, and the medical decision-making described in the above note were completed with the assistance of the resident physician. I reviewed and agree with the findings presented. I attest that I had a [id number] encounter with the patient on the same day, and personally performed and documented my assessment and findings in the medical record. <Luis Lambert - 06/01/18 17:20> <Erasmo Mares S - Last Filed: 06/01/18 13:36> (2) Chest pain Qualifiers: Chest pain type: intercostal pain Qualified Code(s): R07.82 - Intercostal pain (3) UTI (urinary tract infection) Qualifiers: Urinary tract infection type: acute cystitis Hematuria presence: without hematuria Qualified Code(s): N30.00 - Acute cystitis without hematuria <Luis Lambert - Last Filed: 06/01/18 17:20> (2) Chest pain Qualifiers: Chest pain type: intercostal pain Qualified Code(s): R07.82 - Intercostal pain (3) UTI (urinary tract infection) Qualifiers: Urinary tract infection type: acute cystitis Hematuria presence: without hematuria Qualified Code(s): N30.00 - Acute cystitis without hematuria <Erasmo Mares S - Last Filed: 06/01/18 13:36> (2) Chest pain Qualifiers: Chest pain type: intercostal pain Qualified Code(s): R07.82 - Intercostal pain (3) UTI (urinary tract infection) Qualifiers: Urinary tract infection type: acute cystitis Hematuria presence: without hematuria Qualified Code(s): N30.00 - Acute cystitis without hematuria <Luis Lambert - Last Filed: 06/01/18 17:20> (2) Chest pain Qualifiers: Chest pain type: intercostal pain Qualified Code(s): R07.82 - Intercostal pain (3) UTI (urinary tract infection) Qualifiers: Urinary tract infection type: acute cystitis Hematuria presence: without hematuria Qualified Code(s): N30.00 - Acute cystitis without hematuria
--- NOTE | 2018-06-01 15:00 | P.PNNEU ---
Subjective Subjective Comments: no recurrent sz or loc. Active Medications: Active Medications Acetaminophen (Tylenol) 650 mg PO Q6HR PRN PRN Reason: PAIN SCALE 1 TO 2 Last Admin: 05/31/18 12:27 Dose: 650 mg Clonidine HCl (Catapres) 0.1 mg PO Q6H PRN PRN Reason: SEE LABEL COMMENTS Enoxaparin Sodium (Lovenox Inj) 40 mg SQ Q24H [facility] Last Admin: 06/01/18 12:11 Dose: 40 mg Ceftriaxone Sodium 1,000 mg/ (Sodium Chloride) 100 mls @ 200 mls/hr IV.SIG Q24H [facility] Last Infusion: 06/01/18 09:32 Dose: 0 mls/hr Ibuprofen (Motrin) 400 mg PO Q6H [facility] Last Admin: 06/01/18 13:29 Dose: 400 mg Ketorolac Tromethamine (Toradol Inj) 15 mg IV.PUSH Q6H PRN PRN Reason: PAIN 3-5; IF UABLE TO TAKE PO Stop: 06/05/18 10:42 Ketorolac Tromethamine (Toradol Inj) 30 mg IV.PUSH Q6H PRN PRN Reason: PAIN 6-10;IF UNABLE TO TAKE PO Stop: 06/05/18 10:42 Lorazepam (Ativan Inj) 1 mg IV.PUSH Q15M PRN PRN Reason: SEIZURES Naloxone HCl (Narcan Inj) 0.4 mg IV.PUSH UNSCH PRN PRN Reason: SEE LABEL COMMENTS Sodium Chloride (Ns Flush) 2 ml IV.FLUSH PRN PRN PRN Reason: FLUSH AFTER USING IV ACCESS Allergies/Adverse Reactions: Allergies Allergy/AdvReac Type Severity Reaction Status Date / Time meperidine Allergy Mild Hives Verified 05/31/18 06:39 hydromorphone Allergy Unknown Anaphylaxis Verified 05/31/18 06:39 NOVCAINE Allergy Mild Burning Uncoded 05/31/18 06:39 Physical Exam Vital signs: Vital Signs 05/31/18 15:53 05/31/18 20:00 05/31/18 23:18 Temperature 97.5 F L 97.6 F 97.6 F Pulse Rate 72 69 60 Respiratory Rate 16 16 16 Blood Pressure 143/88 H 116/68 110/63 Pulse Oximetry 95 97 96 05/31/18 23:54 06/01/18 03:26 06/01/18 05:16 Temperature 97.7 F Pulse Rate 69 66 71 Respiratory Rate 19 Blood Pressure 128/78 Pulse Oximetry 97 06/01/18 07:40 06/01/18 08:00 06/01/18 12:00 Temperature 98.0 F 98.6 F Pulse Rate 69 71 77 Respiratory Rate 16 16 Blood Pressure 131/64 127/66 Pulse Oximetry 95 93 L Intake & Output 05/31/18 06/01/18 06/01/18 18:59 06:59 18:59 Intake Total 1000 / 1000 1000 / 1000 1000 / 1000 Balance 1000 / 1000 1000 / 1000 1000 / 1000 Intake: IV 1000 / 1000 1000 / 1000 1000 / 1000 NS Inj 1,000 ML @ 125 mls/hr IV 1000 / 1000 1000 / 1000 1000 / 1000 .CONT .Q8H [facility] Rx#:[id number] Other: # Voids 3 Date of Last Bowel Movement 05/31/18 05/31/18 # Bowel Movements 1 - Routine Neurological Exam alert, oriented, speech normal CN intact MOTOR 5/5 BUE Objective Laboratory Results - last 24 hr 05/31/18 05/31/18 06/01/18 18:05 18:05 06:25 WBC 5.8 RBC 4.10 Hgb 13.4 Hct 39.4 MCV 96.1 MCH 32.7 MCHC 34.1 RDW 13.5 Plt Count 265 MPV 8.9 Neut % (Auto) 53.0 Lymph % (Auto) 30.7 [place] % (Auto) 12.5 H Eos % (Auto) 2.5 Baso % (Auto) 1.3 Neut # (Auto) 3.1 Lymph # (Auto) 1.8 [place] # (Auto) 0.7 Eos # (Auto) 0.1 Baso # (Auto) 0.1 WBC Differential . Differential Comment Auto diff final Sodium Potassium Chloride Carbon Dioxide Anion Gap BUN Creatinine Estimated GFR Random Glucose Calcium Urine Color Yellow Urine Clarity Hazy H Urine pH 6.0 Ur Specific [place] 1.020 Urine Protein Negative Urine Glucose (UA) Negative Urine Ketones Negative Urine Occult Blood Small H Urine Nitrate Positive H Urine Bilirubin Negative Urine Urobilinogen 2.0 H Ur Leukocyte Esterase Negative Urine RBC Less than 1 Urine WBC 5 Ur Squamous Epith Cells 5 Urine Bacteria Many H Micro UA Comment Culture indicated Ur Microscopic Review Not Reportable Urine Culture Comments Culture indicated Urine Opiates Screen Neg Ur Barbiturates Screen Neg Ur Amphetamines Screen Neg U Benzodiazepines Scrn Neg Urine Cocaine Screen Neg U Cannabinoids Screen Pos H 06/01/18 06:25 WBC RBC Hgb Hct MCV MCH MCHC RDW Plt Count MPV Neut % (Auto) Lymph % (Auto) [place] % (Auto) Eos % (Auto) Baso % (Auto) Neut # (Auto) Lymph # (Auto) [place] # (Auto) Eos # (Auto) Baso # (Auto) WBC Differential Differential Comment Sodium 143 Potassium 3.7 Chloride 109 H Carbon Dioxide 27.6 Anion Gap 6 BUN 10 Creatinine 0.67 Estimated GFR Greater than 89 Random Glucose 94 Calcium 8.0 L Urine Color Urine Clarity Urine pH Ur Specific [place] Urine Protein Urine Glucose (UA) Urine Ketones Urine Occult Blood Urine Nitrate Urine Bilirubin Urine Urobilinogen Ur Leukocyte Esterase Urine RBC Urine WBC Ur Squamous Epith Cells Urine Bacteria Micro UA Comment Ur Microscopic Review Urine Culture Comments Urine Opiates Screen Ur Barbiturates Screen Ur Amphetamines Screen U Benzodiazepines Scrn Urine Cocaine Screen U Cannabinoids Screen Microbiology 05/31/18 18:05 Urine Culture - Preliminary Clean Catch Urine gram negative rods Review/Management - Diagnosis (1) Seizure Code(s): R56.9 - Unspecified convulsions Status: Acute Current Visit: Yes - Review/Management Plan: follow up EEG. If epileptiform activity is seen, would start keppra 500 mg bid. If no epileptiform activity is seen I would not recommend anticonvulsant at this time
--- NOTE | 2018-06-01 16:33 | MB ---
cc: Ritchie Rollins MD DATE: 06/01/2018 REASON FOR CONSULTATION: Ventricular bigeminy. HISTORY OF PRESENT ILLNESS: The patient is a 52-year-old white female with a history of ovarian cancer, paroxysmal atrial fibrillation, status post ablation a year ago, who was brought to the hospital after a witnessed seizure. The patient has little to no recollection of the events of yesterday when she was admitted. She does note a very long history, dating back to childhood, of occasional episodes of loss of consciousness. Many episodes have lasted up to 10 minutes. She even reports one episode where she was pronounced "DOA". The last episode of loss of consciousness prior to yesterday was about a year ago and before that at least two years but at certain points in her life she has had as many as two episodes per week, which she states were attributed to anxiety. The patient, in addition, also complains of A left parasternal chest tightness which has been present in a constant fashion for the past 5 days. It has waxed and waned in severity. She has noticed that lying down in the supine position and taking a deep breath exacerbates the chest discomfort. She denies shortness of breath, diaphoresis, pedal edema, paroxysmal nocturnal dyspnea, fevers, cough. Apparently while an EEG was being obtained today, ventricular bigeminy was seen on the monitor. The patient reports chronic, ever since childhood, intermittent palpitations described as "skipped beats." PAST MEDICAL HISTORY: 1. Ovarian cancer, status post CORAL/BSO. 2. Paroxysmal atrial fibrillation, status post ablation up in [place] about 1 year ago. PAST SURGICAL HISTORY: CORAL/BSO. CARDIAC MEDICATIONS AT HOME: None. ALLERGIES: 1. DEMEROL 2. HYDROMORPHONE. 3. NOVOCAIN. FAMILY HISTORY: There is no significant family history of early myocardial infarction. Her mother from interstitial lung disease. Her father from leukemia. SOCIAL HISTORY: The patient is a former smoker. She denies alcohol abuse. She admits to smoking, occasional marijuana. REVIEW OF SYSTEMS: As in history of present illness, otherwise negative or noncontributory. She also denies abdominal pain, melena, dyspepsia, bright red blood per rectum, cough. PHYSICAL EXAMINATION: VITAL SIGNS: Her blood pressure 127/66 with a pulse of 68, respirations 16. GENERAL: She is a well-developed, well-nourished white female, in no acute distress. NECK: Jugular venous pressure is normal. Carotid pulses are 2+ bilaterally and without bruits. CHEST: Reveals clear lung briones. CARDIAC: She has a regular rhythm and rate without S3, S4, or murmur. Chest wall tenderness is evidence reproducing her chest discomforts. ABDOMEN: She has a soft, obese, nontender abdomen. Bowel sounds are present. There is no definite hepatosplenomegaly. EXTREMITIES: Reveal no clubbing, cyanosis or edema. DIAGNOSTIC DATA: EKG shows sinus rhythm. occasional PVC, nonspecific T-wave abnormality. Chest x-ray shows no acute disease. LABORATORY DATA: Includes normal CBC, normal basic metabolic profile, negative cardiac enzymes. IMPRESSION: Ventricular bigeminy, exceedingly atypical chest pain, possible seizure, long history of episodic syncope in this 52-year-old with a history of ovarian cancer, atrial fibrillation ablation about a year ago. Despite constant chest discomfort for at least the last 5 days, cardiac enzymes are negative for myocardial infarction, and EKG showed no acute ST segment or T-wave changes. The patient also reports an unremarkable cardiac catheterization last year prior to her ablation procedure. In addition, she has some chest wall tenderness on exam, reproducing her chest discomforts. Clinical suspicion for pulmonary embolism is extremely low. With respect to the ventricular bigeminy, it is usually overall a benign finding. She has chronic skipped beats, palpitations dating back to childhood. Electrolyte levels are acceptable. The etiology of her chronic recurrent syncopal episodes is not entirely clear. She may have neurally-mediated syncope. According to the patient, her EEG today demonstrated no definite evidence for seizure focus. On monitoring, she has demonstrated no definite evidence for significant arrhythmia. RECOMMENDATIONS: 1. Check a 2-D echocardiogram to reassess her left ventricular function. 2. If it can be scheduled, tilt table testing in the morning. MD SAY Fernandez/charo , 03:55 PM , 04:06 PM [facility]
--- NOTE | 2018-06-01 21:41 | ECHRPT ---
Indication: Cardiomyopathy CONCLUSIONS Normal left ventricular size. Wall thickness is measured at the upper limits of normal. The left ventricular systolic function is normal with an estimated ejection fraction in the range of 55-60%. No regional wall motion abnormalities are present. There is trace tricuspid valve regurgitation. The estimated pulmonary arterial pressure is 35 mmHg. BP: / HR: Rhythm: MEASUREMENTS (Male / Female) Normal Values Technical Quality:Fair 2D ECHO LV Diastolic Diameter PLAX 5.6 cm 4.2 - 5.9 / 3.9 - 5.3 cm LV Systolic Diameter PLAX 3.8 cm IVS Diastolic Thickness 1.1 cm 0.6 - 1.0 / 0.6 - 0.9 cm LVPW Diastolic Thickness 1.0 cm 0.6 - 1.0 / 0.6 - 0.9 cm LV Relative Wall Thickness 0.4 RV Internal Dim ED PLAX 3.0 cm LVOT Diameter 2.1 cm Aortic Root Diameter 2.9 cm LA Systolic Diameter LX 3.8 cm 3.0 - 4.0 / 2.7 - 3.8 cm M-MODE AV Cusp Separation MM 2.4 cm DOPPLER AV Peak Velocity 153.0 cm/s AV Peak Gradient 9.4 mmHg LVOT Peak Velocity 97.2 cm/s LVOT Peak Gradient 3.8 mmHg AV Area Cont Eq pk 2.2 cm Mitral E Point Velocity 78.0 cm/s Mitral A Point Velocity 80.0 cm/s Mitral E to A Ratio 1.0 LV E' Lateral Velocity 8.7 cm/s Mitral E to LV E' Lateral Ratio 9.0 LV E' Septal Velocity 10.3 cm/s Mitral E to LV E' Septal Ratio 7.6 TR Peak Velocity 251.0 cm/s TR Peak Gradient 25.2 mmHg Right Atrial Pressure 10.0 mmHg Pulmonary Artery Systolic Pressu 35.2 mmHg Right Ventricular Systolic Press 35.2 mmHg PV Peak Velocity 105.0 cm/s PV Peak Gradient 4.4 mmHg FINDINGS LEFT VENTRICLE Normal left ventricular size. Wall thickness is measured at the upper limits of normal. The left ventricular systolic function is normal with an estimated ejection fraction in the range of 55-60%. No regional wall motion abnormalities are present. RIGHT VENTRICLE Normal right ventricular size and systolic function. LEFT ATRIUM The left atrial size is normal. RIGHT ATRIUM The right atrial size is normal. ATRIAL SEPTUM Normal atrial septal thickness without atrial level shunting by limited color doppler interrogation. AORTA The aortic root and proximal ascending aorta are normal in size on limited imaging. MITRAL VALVE Trace mitral valve regurgitation. AORTIC VALVE Trileaflet aortic valve. No aortic valve stenosis or regurgitation. TRICUSPID VALVE There is trace tricuspid valve regurgitation. The estimated pulmonary arterial pressure is 35 mmHg. PULMONARY VALVE No pulmonary valve regurgitation or stenosis. VESSELS The inferior vena cava is normal in size. PERICARDIUM No pericardial effusion. Ritchie Rollins MD (Electronically Signed) Final Date:01 June 2018 21:40
[2018-06-02] MEDS: Ibuprofen 400 MG Tablet PO SCH ×2 (01:25→11:06)
--- NOTE | 2018-06-02 08:18 | P.PNCA ---
Subjective Interval history: No CP, dyspnea, dizziness. Medications and Allergies Active Medications: Active Medications Acetaminophen (Tylenol) 650 mg PO Q6HR PRN PRN Reason: PAIN SCALE 1 TO 2 Last Admin: 05/31/18 12:27 Dose: 650 mg Clonidine HCl (Catapres) 0.1 mg PO Q6H PRN PRN Reason: SEE LABEL COMMENTS Enoxaparin Sodium (Lovenox Inj) 40 mg SQ Q24H [facility] Last Admin: 06/01/18 12:11 Dose: 40 mg Ceftriaxone Sodium 1,000 mg/ (Sodium Chloride) 100 mls @ 200 mls/hr IV.SIG Q24H [facility] Last Infusion: 06/01/18 09:32 Dose: 0 mls/hr Ibuprofen (Motrin) 400 mg PO Q6H [facility] Last Admin: 06/02/18 01:25 Dose: 400 mg Ketorolac Tromethamine (Toradol Inj) 15 mg IV.PUSH Q6H PRN PRN Reason: PAIN 3-5; IF UABLE TO TAKE PO Stop: 06/05/18 10:42 Ketorolac Tromethamine (Toradol Inj) 30 mg IV.PUSH Q6H PRN PRN Reason: PAIN 6-10;IF UNABLE TO TAKE PO Stop: 06/05/18 10:42 Lorazepam (Ativan Inj) 1 mg IV.PUSH Q15M PRN PRN Reason: SEIZURES Naloxone HCl (Narcan Inj) 0.4 mg IV.PUSH UNSCH PRN PRN Reason: SEE LABEL COMMENTS Sodium Chloride (Ns Flush) 2 ml IV.FLUSH PRN PRN PRN Reason: FLUSH AFTER USING IV ACCESS Allergies Allergy/AdvReac Type Severity Reaction Status Date / Time meperidine Allergy Mild Hives Verified 05/31/18 06:39 hydromorphone Allergy Unknown Anaphylaxis Verified 05/31/18 06:39 NOVCAINE Allergy Mild Burning Uncoded 05/31/18 06:39 Home Medications Medication Instructions Recorded Confirmed Type No Known Home Medications 05/31/18 05/31/18 History Physical Exam Vital signs: Vital Signs 06/01/18 12:00 06/01/18 20:00 06/01/18 23:40 Temperature 98.6 F 97.7 F 97.8 F Pulse Rate 77 80 72 Respiratory Rate 16 18 18 Blood Pressure 127/66 121/71 112/64 Pulse Oximetry 93 L 97 96 06/02/18 04:00 06/02/18 07:34 Temperature 98.4 F 98.2 F Pulse Rate 64 78 Respiratory Rate 18 20 Blood Pressure 114/75 103/65 Pulse Oximetry 97 97 Intake & Output 06/01/18 06/02/18 06/02/18 18:59 06:59 18:59 Intake Total 1000 / 1000 Balance 1000 / 1000 Intake: IV 1000 / 1000 NS Inj 1,000 ML @ 125 mls/hr IV 1000 / 1000 .CONT .Q8H [facility] Rx#:[id number] Other: # Voids 2 Date of Last Bowel Movement 05/31/18 Results 06/01/18 06:25 06/01/18 06:25 Cardiac Enzymes 05/31/18 05/31/18 05/31/18 Range/Units 07:00 07:00 13:24 AST 28 (15-37) U/L CK-MB (CK-2) Less than 1.0 (0.5-3.6) ng/mL Troponin I Less than 0.02 L Cancelled Less than 0.02 L (0.02-0.05) ng/mL Coagulation 05/31/18 Range/Units 13:24 PT 10.0 (9.8-11.6) sec APTT 26.6 (24.3-30.1) sec CBC 05/31/18 06/01/18 Range/Units 07:00 06:25 WBC 6.7 5.8 (4.0-11.0) th/mm3 RBC 4.23 4.10 (4.00-5.30) mil/mm3 Hgb 13.9 13.4 (11.6-15.3) gm/dL Hct 39.8 39.4 (35.0-46.0) % Plt Count 270 265 (150-450) th/mm3 Neut # (Auto) 3.5 3.1 (1.8-7.7) th/mm3 Lymph # (Auto) 1.8 1.8 (1.0-4.8) th/mm3 Young # (Auto) 1.1 H 0.7 (0.0-0.9) th/mm3 Eos # (Auto) 0.1 0.1 (0.0-0.4) th/mm3 Baso # (Auto) 0.0 0.1 (0.0-0.2) th/mm3 Comprehensive Metabolic Panel 05/31/18 06/01/18 Range/Units 07:00 06:25 Sodium 142 143 (136-145) meq/L Potassium 3.6 3.7 (3.5-5.1) meq/L Chloride 106 109 H (98-107) meq/L Carbon Dioxide 26.8 27.6 (21.0-32.0) meq/L BUN 13 10 (7-18) mg/dL Creatinine 0.76 0.67 (0.50-1.00) mg/dL Calcium 8.5 8.0 L (8.5-10.1) mg/dL AST 28 (15-37) U/L ALT 45 (10-53) U/L Alkaline Phosphatase 86 (45-117) U/L Total Protein 7.4 (6.4-8.2) g/dL Albumin 3.2 L (3.4-5.0) g/dL Intake and Output 06/01/18 06/02/18 06/02/18 22:59 06:59 14:59 Other: # Voids 2 Date of Last Bowel Movement 05/31/18 - Imaging and Cardiology Imaging: Impressions Chest X-Ray 05/31/18 08:36 CONCLUSION: No acute intrathoracic disease. Stable examination. Head MRI 05/31/18 11:20 CONCLUSION: 1. Unremarkable MRI of the brain for patient's age. 2. Chronic right-sided mastoiditis. Assessment and Plan - Assessment (1) Chest pain Code(s): R07.9 - Chest pain, unspecified Status: Acute Plan: No further CP. Symptoms exceedingly atypical for myocardial ischemia. Despite constant CP for a few days, cardiac enzymes negative for KS, EKG's unremarkable. Patient also reports normal cath last year. Echo this admission normal. Recommend no further w/u. (2) Syncopal episodes Code(s): R55 - Syncope and collapse Status: Chronic Plan: Patient with chronic, sporadic syncopal episodes dating back to childhood, unclear etiology. No evidence for arrhythmia. Patient currently getting tilt table test. If positive, recommend treatment with pindolol 10 mg bid. If negative OK to discharge from cardiac standpoint, and recommend she seek health insurance so that a loop recorder and subsequent loop recorder transmissions can be done in the future. (3) Paroxysmal atrial fibrillation Code(s): I48.0 - Paroxysmal atrial fibrillation Status: Chronic Plan: Patient apparently s/p ablation last year in [place]. Remains in NSR. Thromboembolic risk is low. Recommend daily baby aspirin. - Plan Code Status: full code Discussed Condition With: patient (1) Chest pain Qualifiers: Chest pain type: unspecified Qualified Code(s): R07.9 - Chest pain, unspecified (2) Syncopal episodes Qualifiers: Syncope type: unspecified Qualified Code(s): R55 - Syncope and collapse
--- NOTE | 2018-06-02 09:18 | MG ---
cc: Angelito Mendoza MD EEG NUMBER: [id number]. INDICATION: Witnessed seizure, Tylenol, AFib. FINDINGS: Diffuse alpha and beta rhythm was seen. An 11 Hz, 60 mV symmetric posterior rhythm is noted. No hemisphere asymmetries seen. Recording overall is synchronous and symmetric. Photic stimulation is performed without significant posterior driving. Hyperventilation was not performed. IMPRESSION: Normal awake electroencephalogram. No evidence for a focal or diffuse abnormality. Angelito Mendoza MD DJM/rh , 08:35 AM , 08:39 AM
--- NOTE | 2018-06-02 10:28 | P.PNFP ---
Subjective Interval history: No acute events overnight. Patient is doing well this morning. Patient just completed her table tilt test, which was negative. Patient reports that she has been feeling depressed for awhile. She states that her and Dr. Cabral will treat her depression when she meets up with him outpatient. States that she has had a lot of issues at home. Patient has no other complaints. Denies headache, lightheadedness chest pain, shortness of breath, nausea vomiting, and abdominal pain. Results - Labs Result diagrams: 06/01/18 06:25 06/01/18 06:25 Abnormal lab results 05/31/18 Range/Units 18:05 Urine Clarity Hazy H (Clear) Urine Occult Blood Small H (Negative) Urine Nitrate Positive H (Negative) Urine Urobilinogen 2.0 H (Less than 2) mg/dL Urine Bacteria Many H (None) /hpf Urine 05/31/18 Range/Units 18:05 Urine Color Yellow (Yellw/Straw) Urine Clarity Hazy H (Clear) Urine pH 6.0 (5.0-8.5) Ur Specific [place] 1.020 (1.002-1.035) Urine Protein Negative (Neg-Trace) mg/dL Urine Glucose (UA) Negative (Negative) mg/dL Physical Exam Vital signs: Vital Signs 06/01/18 12:00 06/01/18 20:00 06/01/18 23:40 Temperature 98.6 F 97.7 F 97.8 F Pulse Rate 77 80 72 Respiratory Rate 16 18 18 Blood Pressure 127/66 121/71 112/64 Pulse Oximetry 93 L 97 96 06/02/18 04:00 06/02/18 07:34 Temperature 98.4 F 98.2 F Pulse Rate 64 78 Respiratory Rate 18 20 Blood Pressure 114/75 103/65 Pulse Oximetry 97 97 Intake & Output 06/01/18 06/02/18 06/02/18 18:59 06:59 18:59 Intake Total 1000 / 1000 Balance 1000 / 1000 Intake: IV 1000 / 1000 NS Inj 1,000 ML @ 125 mls/hr IV 1000 / 1000 .CONT .Q8H [facility] Rx#:[id number] Other: # Voids 2 Date of Last Bowel Movement 05/31/18 Narrative: GENERAL: Well-nourished, Obese, well-developed patient. No acute distress. CARDIOVASCULAR: Regular rate and rhythm without obvious murmurs, rubs, or gallops. RESPIRATORY: Breath sounds equal bilaterally. No accessory muscle use. CTAB. GASTROINTESTINAL: Abdomen soft, obese, non-tender, nondistended. BS WNL. MUSCULOSKELETAL: No cyanosis or edema. NEURO/PSYCH: Afocal. Awake, alert, and oriented x3. Assessment and Plan - Assessment (1) Seizure Code(s): R56.9 - Unspecified convulsions Status: Acute Plan: DDx including primary seizure/neurologic disorder, arrhythmia Ativan PRN for acute seizure Neurology and cardiology consulted, appreciate recommendations * EEG is normal. I would not recommend anticonvulsant medication at this time. Okay to be discharged from neurological standpoint. Follow-up with neurology in 2-3 weeks. * No driving until 6 months seizure free * Tilt table test is negative. Patient is discharged from a cardiac standpoint. Recommended that she seek health insurance as of the loop recorder can be done in the future. Spoke with case management. customer care manager to be working on getting patient assistance as well as a blue card. Patient will be referred to [facility] for follow-up. Work up: Head Ct: No acute intracranial abnormality EKG: Normal sinus rhythm with 1 PVC CBC: Within normal limits CMP: No acute metabolic disturbances U-tox: Serum alcohol less than 3 MRI: negative EEG: negative Urine culture positive for E.coli, sensitive to Keflex (2) Chest pain Code(s): R07.9 - Chest pain, unspecified Status: Acute Plan: No further chest pain. Echocardiogram normal. Cardiac enzymes negative and EKG unremarkable. Cardiology recommended no further workup. (3) UTI (urinary tract infection) Code(s): N39.0 - Urinary tract infection, site not specified Status: Acute Plan: Urine growing gram negative rods. Resistance to Bactrim, sensitive to Keflex Discontinue Rocephin 06/01-06/02 Patient will be discharged on Keflex 500 mg twice daily for 5 days (4) Depression Code(s): F32.9 - Major depressive disorder, single episode, unspecified Status : Acute Plan: Follow-up with neurology outpatient. Patient may need referral to psychology or psychiatry. (5) Nutrition, metabolism, and development symptoms Code(s): R63.8 - Other symptoms and signs concerning food and fluid intake Status: Acute Plan: Fluids: No IV fluids indicated at this time Electrolytes: Replete as needed Nutrition: Cardiac diet DVT prophylaxis: Enoxaparin 40 Q24hrs (2) Chest pain Qualifiers: Chest pain type: unspecified Qualified Code(s): R07.9 - Chest pain, unspecified (3) UTI (urinary tract infection) Qualifiers: Urinary tract infection type: acute cystitis Hematuria presence: without hematuria Qualified Code(s): N30.00 - Acute cystitis without hematuria
--- NOTE | 2018-06-02 10:48 | P.PNNEU ---
Subjective Subjective Comments: No recurrent sz or syncope Active Medications: Active Medications Acetaminophen (Tylenol) 650 mg PO Q6HR PRN PRN Reason: PAIN SCALE 1 TO 2 Last Admin: 05/31/18 12:27 Dose: 650 mg Aspirin (Ecotrin) 81 mg PO DAILY [facility] Clonidine HCl (Catapres) 0.1 mg PO Q6H PRN PRN Reason: SEE LABEL COMMENTS Enoxaparin Sodium (Lovenox Inj) 40 mg SQ Q24H [facility] Last Admin: 06/01/18 12:11 Dose: 40 mg Ceftriaxone Sodium 1,000 mg/ (Sodium Chloride) 100 mls @ 200 mls/hr IV.SIG Q24H [facility] Last Infusion: 06/01/18 09:32 Dose: 0 mls/hr Ibuprofen (Motrin) 400 mg PO Q6H [facility] Last Admin: 06/02/18 01:25 Dose: 400 mg Ketorolac Tromethamine (Toradol Inj) 15 mg IV.PUSH Q6H PRN PRN Reason: PAIN 3-5; IF UABLE TO TAKE PO Stop: 06/05/18 10:42 Ketorolac Tromethamine (Toradol Inj) 30 mg IV.PUSH Q6H PRN PRN Reason: PAIN 6-10;IF UNABLE TO TAKE PO Stop: 06/05/18 10:42 Lorazepam (Ativan Inj) 1 mg IV.PUSH Q15M PRN PRN Reason: SEIZURES Naloxone HCl (Narcan Inj) 0.4 mg IV.PUSH UNSCH PRN PRN Reason: SEE LABEL COMMENTS Sodium Chloride (Ns Flush) 2 ml IV.FLUSH PRN PRN PRN Reason: FLUSH AFTER USING IV ACCESS Allergies/Adverse Reactions: Allergies Allergy/AdvReac Type Severity Reaction Status Date / Time meperidine Allergy Mild Hives Verified 05/31/18 06:39 hydromorphone Allergy Unknown Anaphylaxis Verified 05/31/18 06:39 NOVCAINE Allergy Mild Burning Uncoded 05/31/18 06:39 Physical Exam Vital signs: Vital Signs 06/01/18 12:00 06/01/18 20:00 06/01/18 23:40 Temperature 98.6 F 97.7 F 97.8 F Pulse Rate 77 80 72 Respiratory Rate 16 18 18 Blood Pressure 127/66 121/71 112/64 Pulse Oximetry 93 L 97 96 06/02/18 04:00 06/02/18 07:34 Temperature 98.4 F 98.2 F Pulse Rate 64 78 Respiratory Rate 18 20 Blood Pressure 114/75 103/65 Pulse Oximetry 97 97 Intake & Output 06/01/18 06/02/18 06/02/18 18:59 06:59 18:59 Intake Total 1000 / 1000 Balance 1000 / 1000 Intake: IV 1000 / 1000 NS Inj 1,000 ML @ 125 mls/hr IV 1000 / 1000 .CONT .Q8H [facility] Rx#:[id number] Other: # Voids 2 Date of Last Bowel Movement 05/31/18 - Routine Neurological Exam alert, oriented, speech normal CN intact MOTOR 5/5 BUE and BLE Objective Laboratory Results - last 24 hr 05/31/18 18:05 Urine Color Yellow Urine Clarity Hazy H Urine pH 6.0 Ur Specific [place] 1.020 Urine Protein Negative Urine Glucose (UA) Negative Urine Ketones Negative Urine Occult Blood Small H Urine Nitrate Positive H Urine Bilirubin Negative Urine Urobilinogen 2.0 H Ur Leukocyte Esterase Negative Urine RBC Less than 1 Urine WBC 5 Ur Squamous Epith Cells 5 Urine Bacteria Many H Micro UA Comment Culture indicated Urine Culture Comments Culture indicated Microbiology 05/31/18 18:05 Urine Culture - Final Clean Catch Urine Escherichia coli Review/Management - Diagnosis (1) Seizure Code(s): R56.9 - Unspecified convulsions Status: Acute Current Visit: Yes - Review/Management Plan: EEG is normal. Would not recommend anticonvulsant medication. Ok form neurology standpoint to discharge when ok with cardiology and primary service. No driving for 6 months. Please schedule follow up in my office in 2-3 weeks
[2018-06-02] MEDS: Enoxaparin Inj 40 MG/0.4 ML Syringe SQ SCH (11:00)
--- NOTE | 2018-06-03 10:02 | P.DS ---
Date of admission: 05/31/18 09:33 Primary care physician: No Primary Care Physician Brief History from admission: This is a 52-year-old female with a history of "blackouts" and atrial fibrillation status post cardiac ablation admitted to observation after experiencing chest pain and a tonic-clonic seizure. Patient reports that this morning was atypical and regular morning and while making lunch the patient's partner described the patient grabbed her chest granted and her eyes rolled back to begin to shake. Her partner then eased her down to the ground avoiding injury. According to the partner the patient continued to shake and rapidly open and close her eyes for approximately 3 minutes. After 3 minutes of convulsions the partner reports that the patient had approximately 1 minute a little to no breathing with a large gasp before regaining consciousness. During this time the patient reports having no memory of the events immediately before or after reports that she was confused and disoriented until she arrived at the hospital. Partner also reports that the patient urinated on herself during this event. During this time the partner also reports that the patient appeared to be dry heaving but did not vomit. Patient also describes a 4-day history of chest pain. She describes the chest pain as constant at a baseline 1/10 with exacerbations increasing her pain. She characterizes her chest pain as squeezing that begins in the left side of her chest just underneath the left breast and radiates to the right shoulder, then around her back to her left shoulder that leaves her shoulders feeling like "restless leg". Patient reports it is unrelated to position activity or food but is worsened by deep breathing. Pain self recedes after an inconsistent amount of time. Patient also reports experiencing shortness of breath over the last 2 days. There are no other alleviating or exacerbating factors. There are no other associated symptoms. OBHx: , patient had one gestation with twins 1 of which was diagnosed as a ectopic and removed via laparoscopy. PMHx: - "Blackouts": Patient reports a long history of "black out" spells getting since the 3rd grade. She reports that during these blackout spells she would experience a loss of consciousness and originally could not feel these abrupt loss of tone and consciousness in advance. As an adult she said that they were associated with white spots and feeling woozy as if though she were on a boat. Patient was originally worked up as a child but did not receive workup as an adult. Patient reports that until 5 years ago she was experiencing these blackout events 1 to every 2 months. Since 5 years ago she is experiencing about once a year with the last episode being once a year. She also reported these blackout episodes were accompanied by shaking and in the past have caused trauma and lacerations while falling. As an adult she reports that before she has an event she begins to experience visual changes in her vision becomes blurry. Patient also reports that they are at times when experiences urinary incontinence during these episodes as well as there are time when she experiences shaking during these episodes. These blackout sessions are unrelated to activity, time of day, or position. Due to lack of insurance patient has not received consistent medical care since her daughter's 30 years ago until being diagnosed with atrial fibrillation in 2012 where she was lost [place] followup until 2017. - Ovarian cancer of unknown etiology diagnosed in 2001, status post total hysterectomy with bilateral salpingo-oophorectomy. Patient denies any treatment with chemotherapy or radiation and was lost to follow-up. - Atrial fibrillation with RVR diagnosed in 2012, status post cardiac ablation. Lost to follow up after ablation due to mother's and lack of insurance. Meds: None Surgical Hx: Total hysterectomy with bilateral salpingooopherectomy, laparoscopy for ectopic, , cardiac ablation in 2012 FHx: Father at age 23 from leukemia, brother at age 28 from the same leukemia in his father, mother at the age of 67 due to interstitial lung disease, both mother and maternal grandmother suffered from heart disease as well as TIAs. Paternal grandmother from breast cancer. Social: Patient currently in a homosexual relationship for "many years", she has 5 children and has been previously . 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 She drinks socially/2 drinks per week. Patient is a prior smoker and smoked 1 pack a week for 37 years and quit over one year ago. Patient reports smoking marijuana since she was 13 years old and does not use any other illicit or recreational drugs. Allergies: Dilaudid causes anaphylaxis Code: DNR DNI DS: Diagnosis - Discharge Diagnosis (1) Seizure Status: Acute (2) Chest pain Status: Acute (3) Shoulder pain, right Status: Acute (4) Nutrition, metabolism, and development symptoms Status: Acute DS: Medications - Discharge Medications Prescriptions: cephalexin [Keflex] 500 mg PO Q12H #10 cap DS: Summary Hospital Course: This is a 52-year-old female with a history of "blackouts" and atrial fibrillation status post cardiac ablation admitted to observation after experiencing chest pain and a tonic-clonic seizure. Seizure: On admission patient was evaluated for first time adult seizure with head CT that showed no acute intracranial pathologies. Patient's CBC and CMP showed no metabolic disturbances and her urinary tox screen was noncontributory. Neurology was consulted for further workup and management. During patient's hospital course she also received an MRI of the head that was only remarkable for chronic right side mastoiditis. Per neurological workup patient also received an EEG that showed no epileptiform activity. Patient was ultimately cleared by neurology with recommendation of not driving for 6 months and a scheduled follow-up outpatient in 2-3 weeks. Patient did not receive and was not started on any anti-epileptic medications. Chest pain: Upon admission patient reported experiencing chest pain accompanied by shortness of breath and an ACS rule out workup was initiated. Patient had a chest x-ray showed no acute intrathoracic or cardiopulmonary pathology. Patient 's EKG showed normal sinus rhythm with 1 PVC. Patient also had serial troponins that were negative. Patient was placed on telemetry and cardiology was consulted. On telemetry patient had occasional PVCs. Per cardiology patient also had tilt test which was also negative. Patient was cleared by cardiology with recommendation of outpatient loop recorder. Patient ultimately cleared by both neurology and cardiology. During patient's hospital course she was also found to have a urine culture positive for E. coli patient was treated and discharged with Keflex. - Time Spent with Patient Total time spent providing and/or coordinating discharge services: Greater than 30 minutes - Quality: VTE Deep Vein Thrombosis/Pulmonary Embolism Present on Admission: No Exam Vital signs: Vital Signs 06/02/18 11:42 Temperature 98.6 F Pulse Rate 89 Respiratory Rate 20 Blood Pressure 129/77 Pulse Oximetry 95 Intake & Output 06/02/18 06/03/18 06/03/18 18:59 06:59 18:59 Intake Total 200 / 200 Balance 200 / 200 Intake: IV 200 / 200 Rocephin Inj 1,000 MG In NS Inj 200 / 200 100 ML @ 200 mls/hr IV.SIG Q24H [facility] Rx#:[id number] Narrative: GENERAL: Well-nourished, Obese, well-developed patient. No acute distress. CARDIOVASCULAR: Regular rate and rhythm without obvious murmurs, rubs, or gallops. RESPIRATORY: Breath sounds equal bilaterally. No accessory muscle use. CTAB. GASTROINTESTINAL: Abdomen soft, obese, non-tender, nondistended. BS WNL. MUSCULOSKELETAL: No cyanosis or edema. NEURO/PSYCH: Afocal. Awake, alert, and oriented x3. Results Procedures completed during hospitalization: None - Impressions ITS Impressions Head CT 05/31/18 07:20 CONCLUSION: 1. No acute intracranial abnormality. . Chest X-Ray 05/31/18 08:36 CONCLUSION: No acute intrathoracic disease. Stable examination. Head MRI 05/31/18 11:20 CONCLUSION: 1. Unremarkable MRI of the brain for patient's age. 2. Chronic right-sided mastoiditis. Discharge Plan - Discharge Disposition Patient Disposition: 01 Discharge Home - Discharge Condition Condition: Stable - Discharge Order Discharge Orders: Discharge Order (Routine); Ordered 06/02/18 Ordered By: Simona Lawson [facility] Clear for Discharge (Routine); Ordered 06/02/18 Ordered By: Ritchie Rollins - Physicians Team Primary Care Provider: Primary Care Physici,No Attending Provider: Luis Lambert Other Providers: Pablito Cabral MD, PhD ; Ritchie Rollins MD
== END 2018-06-02 15:52 | disposition home or self-care (01) ==
LOC: NEPC 06:27 → NEDA 06:27 → NEPFCDU 11:38
PROVIDERS: ADMIT Family Medicine; ATTEND Family Medicine
DX: Z66 Do not resuscitate; F32.9 Major depressive disorder, single episode, unspecified; F17.200 Nicotine dependence, unspecified, uncomplicated; Z98.891 History of uterine scar from previous surgery; Z85.43 Personal history of malignant neoplasm of ovary; B96.20 Unspecified Escherichia coli [E. coli] as the cause of diseases classified elsewhere; H70.91 Unspecified mastoiditis, right ear; M25.511 Pain in right shoulder; Z80.6 Family history of leukemia; I49.3 Ventricular premature depolarization; N30.00 Acute cystitis without hematuria; M79.10 Myalgia, unspecified site; F41.9 Anxiety disorder, unspecified; G40.409 Other generalized epilepsy and epileptic syndromes, not intractable, without status epilepticus; F12.90 Cannabis use, unspecified, uncomplicated; I48.0 Paroxysmal atrial fibrillation; R07.9 Chest pain, unspecified; Z90.710 Acquired absence of both cervix and uterus; Z90.722 Acquired absence of ovaries, bilateral